=== PATIENT | male | born 1995 | race Caucasian/White ===

== ENCOUNTER 2016-03-09 07:55 | Day surgery (SDC) | payer BC ==
[2016-03-09 12:17] VITALS: BP 146/83; PULSE 56; TEMP 97.5
== END 2016-03-09 18:46 | disposition home health service (06) ==
LOC: SDCO 07:55 → SURG 07:55 → SDCO 10:00
DX: N13.2 Hydronephrosis with renal and ureteral calculous obstruction (principal); Z87.442 Personal history of urinary calculi
CPT/HCPCS: OP; C1769; C1894; C2617; J0690; J1100; J1170; J1885; J2405; J2704; J3010; Q9967